=== PATIENT | female | born 1990 | race Caucasian/White ===

== ENCOUNTER 2021-09-15 16:12 | Emergency (ER) | payer BC, SELFPAY ==
[2021-09-15 16:12] VITALS: BP 116/73; PULSE 55; RESP 18; TEMP 36.8; O2SAT 100
--- NOTE | 2021-09-15 16:15 | DI.RAD_ITS ---
Exam(s) XR SHOULDER RT COMPLETE 2+V XR CLAVICLE RT EXAM: XR CLAVICLE RT CLINICAL HISTORY: trauma TECHNIQUE: COMPARISON: CR,XR XR SHOULDER RT COMPLETE 2+V from 09/15/2021 FINDINGS: Two views of the clavicle and four views of the shoulder were obtained. There is no acute fracture s een. There is mild elevation of distal clavicle with respect to the acromion and mild widening of th e AC joint suggesting an AC separation. IMPRESSION: RADIATION DOSE DELIVERED: Total DLP
--- NOTE | 2021-09-15 16:15 | DI.RAD_ITS ---
Exam(s) XR THORACIC SPINE COMPLETE EXAM: XR THORACIC SPINE COMPLETE CLINICAL HISTORY: trauma - upper t- spine pain TECHNIQUE: COMPARISON: No exams were available for comparison FINDINGS: Three views were obtained. There is no evidence of acute fracture or dislocation. Intervertebral di sc spaces appear fairly well maintained. Minimal biconvex thoracolumbar scoliosis noted. IMPRESSION: RADIATION DOSE DELIVERED: Total DLP
[2021-09-15] MEDS: ACETAMINOPHEN 1,000 MG/100 ML BTL 400 MG IVPB (16:48)
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
--- NOTE | 2021-09-15 18:11 | DI.VRAD_ITS ---
PROCEDURE INFORMATION: Exam: XR Right Clavicle, Complete Exam date and time: 09/15/2021 17:18 Age: 31 years old Clinical indication: Other: Trauma TECHNIQUE: Imaging protocol: Radiologic exam of the Right clavicle. Complete exam. Views: Any number of views. COMPARISON: No relevant prior studies available. FINDINGS: Bones/joints: The right clavicle is intact. No acute fracture or subluxation. Soft tissues: Normal. IMPRESSION: The right clavicle is intact. Dictated and Authenticated by: Tarah Palacio MD. Ordering:SHABNAM Babb MD
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
--- NOTE | 2021-09-15 18:12 | DI.VRAD_ITS ---
PROCEDURE INFORMATION: Exam: XR Right Shoulder Exam date and time: 09/15/2021 17:21 Age: 31 years old Clinical indication: Other: Trauma TECHNIQUE: Imaging protocol: Radiologic exam of the Right shoulder. Views: 2 or more views. COMPARISON: CR XR CLAVICLE RT 09/15/2021 17:18 FINDINGS: Bones/joints: Mild prominence of the right acromioclavicular interval. Clavicle minimally elevated relative to the acromion. Glenohumeral alignment is normal. No acute fracture. Soft tissues: Please see above. IMPRESSION: Findings suggesting a mild right acromioclavicular ligamentous injury. Dictated and Authenticated by: Tarah Palacio MD. Ordering:SHABNAM Babb MD
[2021-09-15] MEDS: Ketorolac 30 MG/ML VIAL IVP (18:22)
[2021-09-15 18:41] VITALS: BP 116/72; PULSE 60; RESP 18; TEMP 36.7; O2SAT 97
== END 2021-09-15 18:36 | disposition home or self-care (01) ==
LOC: ER 18:52
PROVIDERS: Emergency Provider Nurse Practitioner Family
DX: S43.101A Unspecified dislocation of right acromioclavicular joint, initial encounter (principal); M54.6 Pain in thoracic spine; M79.18 Myalgia, other site; V18.4XXA Pedal cycle driver injured in noncollision transport accident in traffic accident, initial encounter
CPT/HCPCS: 96374; 96375; 99284; 72072; 73000; 73030; J0131; J1885